=== PATIENT | female | born 1945 | race Caucasian/White ===

== ENCOUNTER 2019-03-13 06:41 | Emergency (ER) | payer OTHER ==
[~2019-03-13] VITALS: Ht 162.6 cm; Wt 68.9 kg
[2019-03-13 06:45] VITALS: BP 137/71
[2019-03-13] MEDS ORDERED: NACL 0.9% 1,000 ML IV ONE (07:21)
[2019-03-13] MEDS ORDERED: KETOROLAC 30 MG/ML VIAL IVP ONE (07:25)
[2019-03-13] MEDS ORDERED: ONDANSETRON 4 MG/2 ML VIAL IVP ONE (07:25)
[2019-03-13 07:59] LABS: BASOPHILS % (AUTO) 0.1 % (0.0-2.0); EOSINOPHILS % (AUTO) 0.4 % (0.0-4.0); HEMOGLOBIN 13.2 g/dL (12.0-16.0); LYMPHOCYTES # (AUTO) 1.4 K/uL (2.5-16.5); LYMPHOCYTES % (AUTO) 27.7 % (20.5-51.1); MEAN CORPUSCULAR HEMOGLOBIN 29 pg (27-31); MEAN CORPUSCULAR HGB CONC 34 g/dL (33-37); MEAN CORPUSCULAR VOLUME 86.5 fL (80-94); MONOCYTES # (AUTO) 0.5 K/uL (0.8-1.0); MONOCYTES % (AUTO) 10.4 % (1.7-9.3); NEUTROPHILS # (AUTO) 3.2 K/uL (1.8-7.7); NEUTROPHILS % (AUTO) 61.4 % (42.2-75.2); PLATELET COUNT (AUTO) 193 K/uL (140-450); RED BLOOD CELL COUNT(AUTO) 4.51 MIL/uL (4.20-5.40); RED CELL DISTRIBUTION WIDTH 12.9 % (11.6-13.7); WHITE BLOOD COUNT (AUTO) 5.2 K/uL (4.8-10.8)
[2019-03-13 08:03] LABS: BILIRUBIN,URINE 1+ (NEGATIVE); BLOOD, URINE NEGATIVE (NEGATIVE); COLOR,URINE YELLOW (YELLOW); LEUKOCYTE ESTERASE ,URINE 1+ (NEGATIVE); NITRITE, URINE POSITIVE (NEGATIVE); UGLUCOSE NEGATIVE (NEGATIVE)
[2019-03-13 08:20] LABS: APPEARANCE,URINE SLIGHTLY HAZY (CLEAR)
[2019-03-13 08:21] LABS: RBC,URINE 0-5 /HPF (0-5)
[2019-03-13 08:49] LABS: ANION GAP 12.3 (8-16); CARBON DIOXIDE 29.1 mmol/L (21-32); CHLORIDE 102 mmol/L (98-107); GLUCOSE 110 mg/dL (74-106); POTASSIUM 4.4 mmol/L (3.5-5.1); SODIUM SERUM 139 mmol/L (136-145); UREA NITROGEN, BLOOD 16 mg/dL (7-18)
[2019-03-13 08:55] LABS: ALBUMIN 3.6 g/dL (3.4-5.0); ASPARTATE AMINOTRANSFERASE 13 U/L (15-37); LIPASE 163 U/L (73-393)
[2019-03-13 09:44] VITALS: BP 124/54
== END 2019-03-13 09:44 | disposition home or self-care (01) ==
LOC: MED 06:41
DX: N39.0 Urinary tract infection, site not specified (principal); K76.89 Other specified diseases of liver; I10 Essential (primary) hypertension; Z90.49 Acquired absence of other specified parts of digestive tract
CPT/HCPCS: 36415; 74176; 80053; 81001; 83690; 85025; 87086; 96374; 96375; 99284; J1885; J2405; J7030

== ENCOUNTER 2019-05-22 19:14 | Emergency (ER) | payer OTHER ==
[~2019-05-22] VITALS: Ht 162.6 cm; Wt 67.1 kg
[2019-05-22 19:16] VITALS: BP 145/76
--- NOTE | 2019-05-22 19:37 | NUR ---
PATIENT PRESENTS TO ED WITH PT BIB FAMILY C/O FALL. PT AAOX4, PT KNOWS NAME, DAY OF WEEK, SHES IS AT HOSPITAL AND PRESIDENT PER DAUGHTER PT BECAME SENTAMINTAL AND THEN "WENT TO THE FLOOR". FACIAL SYMMETRY INTACTY, SPEECH CLEAR, GAIT STEADY, NO ARM DRIFT NOTED. MEDHX:HTN RX:LOSARTAN . PT DENIES HITING HEAD. PT WAS CRYING AND FELT LEGS GET WEAK. PT WAS ASSISTED TO GROUND. PT DENIES HEAD NECK OR BACK PAIN. NIHSS 0 . DENIES N/V/D; SKIN IS PINK/WARM/DRY; AAOX4 WITH EVEN AND STEADY GAIT; LUNGS CLEAR BL; HR EVEN AND REGULAR; PT DENIES ANY FEVER, CP, SOB, OR COUGH AT THIS TIME; PATIENT STATES PAIN OF 0/10 AT THIS TIME; VSS; PATIENT POSITIONED FOR COMFORT; HOB ELEVATED; BEDRAILS UP X2; BED DOWN. ER MD MADE AWARE OF PT STATUS.
[2019-05-22 19:40] VITALS: BP 145/76
--- NOTE | 2019-05-22 19:40 | NUR ---
Patient discharged by Dr Curry with v/s stable. Written and verbal after care instructions given and explained. Patient verbalized understanding to Dr Curry. Ambulatory with steady gait. All questions addressed prior to discharge by Dr Curry. Advised to follow up with PMD.
== END 2019-05-22 19:40 | disposition home or self-care (01) ==
LOC: MED 19:14
DX: F48.9 Nonpsychotic mental disorder, unspecified (principal); R53.1 Weakness; I10 Essential (primary) hypertension
CPT/HCPCS: 99281

== ENCOUNTER 2021-11-13 03:18 | Emergency (ER) | payer OTHER ==
[~2021-11-13] VITALS: Ht 167.6 cm; Wt 70.3 kg
--- NOTE | 2021-11-13 03:29 | NUR ---
TO BED 7 FROM TRIAGE
--- NOTE | 2021-11-13 03:30 | NUR ---
Jocelyn craig in [facility] - 11/13/21 at 0342 by CHRISTI PT TAKEN TO BED 7
--- NOTE | 2021-11-13 03:42 | NUR ---
Dr. Valladares examining patient.
--- NOTE | 2021-11-13 03:50 | NUR ---
76/F A/OX4 AMBULATORY, BIB DAUGHTER C/O RIGHT NOSTRIL NOSE BLEEDING X1HR. PATIENT STATED SHE WOKE UP AND FELT HERSELF SWALLOWING THE BLOOD. SINCE THE BLEEDING DID NOT STOP THEY DECIDED TO COME INTO THE ER. PATIENT STATED THAT THIS HAS HAPPENED IN THE PAST X55YRS AGO. PATIENT DENIES CP/SOB/N/D/V/C/PAIN AT THIS TIME. DENIES TAKING ANY BLOOD THINNERS. PMHX HTN MEDS LOSARTAN NKA
--- NOTE | 2021-11-13 04:10 | NUR ---
MD POLO ASSESSING PATIENT AT BEDSIDE
--- NOTE | 2021-11-13 04:10 | NUR ---
PATIENT IS NO LONGER BLEEDING FROM RIGHT NOSTRIL AT THIS TIME.
--- NOTE | 2021-11-13 04:31 | NUR ---
Patient discharged with v/s stable. Written and verbal after care instructions given and explained. Patient verbalized understanding. Ambulatory with steady gait. ID band removed. All questions addressed prior to discharge. Advised to follow up with PMD.
[2021-11-13 04:32] VITALS: BP 136/59
--- NOTE | 2021-11-13 04:36 | NUR ---
The patient's care was reviewed and supervised by Toya Lopes RN. Chart check.
== END 2021-11-13 04:36 | disposition home or self-care (01) ==
LOC: MED 03:18
DX: R04.0 Epistaxis (principal); I10 Essential (primary) hypertension
CPT/HCPCS: 99281

== ENCOUNTER 2023-07-31 21:50 | Emergency (ER) | payer OTHER ==
[~2023-07-31] VITALS: Ht 167.6 cm; Wt 70.8 kg
[2023-07-31 21:54] VITALS: BP 137/69; PULSE 71; RESP 16; TEMP 97.8; O2SAT 97
[2023-07-31 22:53] VITALS: BP 151/67; PULSE 69; RESP 15; O2SAT 97
[2023-07-31] MEDS ORDERED: LORazepam 1 MG TAB PO ONE (23:30)
[2023-07-31] MEDS ORDERED: DICYCLOMINE HCL LIQUID 20 MG, ALUMINUM HYD/MAG/SIMETHICONE 30 ML, LIDOCAINE VISCOUS 2% ... PO ONE ×3 (23:30)
[2023-07-31] MEDS ORDERED: ALUMINUM HYD/MAG/SIMETHICONE 30 ML UDC ONE (23:51)
[2023-07-31] MEDS ORDERED: DICYCLOMINE HCL LIQUID 10 MG/5 ML UDC ONE (23:51)
[2023-08-01] MEDS ORDERED: OMEP40EC24 PO (00:08)
[2023-08-01] MEDS ORDERED: ATA25 PO (00:08)
== END 2023-08-01 00:41 | disposition home or self-care (01) ==
LOC: MED 21:50
DX: R10.13 Epigastric pain (principal); F41.9 Anxiety disorder, unspecified; R06.02 Shortness of breath; I10 Essential (primary) hypertension
CPT/HCPCS: 71045; 99283; Q0092